=== PATIENT | male | born 1960 | race Caucasian/White ===

== ENCOUNTER 2016-07-25 02:08 | Emergency (ER) | payer SELFPAY ==
--- NOTE | 2016-07-27 07:05 | ER ---
ADMIT: 07/25/2016 RM/LOC: ER [facility] MR#: [id number] [address] [place], [place] [address] [address] [address] [place] [id number] Emergency Room Report SEX: M AGE: 56 : 1960 DATE: 07/25/2016 The patient is a 56-year-old male with no specific past medical history, came here with chief complaint of epigastric abdominal pain, which has started about 2 to 3 hours ago and states that he had on and off same pain for the last year. The pain would mostly be resolved by itself. This time also, the patient has similar pain, which is moderate in quality and his pain and aching and is crampy in the epigastric area. Nothing makes it better or worse. The patient states last bowel movement was a few days back and states that he is suffering chronically from constipation. The patient passed gas yesterday. The patient denied any vomiting. The patient was afebrile in the ER, in rrie-ta-frvokleg distress. The pain was controlled, head and neck exam was noncontributory. Chest was clear bilaterally, normal S1, S2 without any murmurs, abdomen is soft without any tenderness or rebound, the patient received GI cocktail, EKG did not show any ST or T changes or arrhythmia, lab work was done and were negative, CT scan of the abdomen and pelvis was negative for any acute changes. The patient was observed. Pain was controlled, the patient was in no distress or pain, the patient was discharged to home. The patient was advised to drink more fluids, use more fiber in the diet, advised on physical activity and using MiraLax or solution or Metamucil just for resolving the constipation. The patient was advised to follow up with the primary doctor and was given the written precautions. The patient agreed with the plan and acknowledged he understood it. Nick Lizarraga MD/ essence JOB #: [id number] CC: Nick Lizarraga MD, Attending Physician
== END 2016-07-25 06:25 | disposition home or self-care (01) ==
LOC: ER 02:08
DX: K59.00 Constipation, unspecified (principal); F17.210 Nicotine dependence, cigarettes, uncomplicated

== ENCOUNTER 2017-02-22 01:20 | Emergency (ER) | payer SELFPAY ==
--- NOTE | 2017-02-22 07:07 | ER ---
ADMIT: 02/22/2017 RM/LOC: ER [facility] MR#: [id number] [address] [address] [address] [address] [place] [phone] Emergency Room Report SEX: M AGE: 56 : 1960 DATE: 02/22/2017 The patient is a 56-year-old male, complaining of right upper quadrant pain tonight after having high-fat, high-protein meal, associated with nausea and vomiting. Denies any fevers, chills, or prior history of biliary colic. Exam remarkable for nontoxic, afebrile, acutely uncomfortable male, tender right upper quadrant. Normal CBC, CMP, CRP, lactic acid, lipase, troponin, and UA except for 1+ blood, 7 rbc's. The patient received IV fluids, Zofran, Toradol, Dilaudid, Protonix with relief of pain. Home with hydrocodone 5/325 #20 plus 6. Outpatient ultrasound. Follow up Dr. Seals for results and possible HIDA scan. Jez Ford MD/ essence JOB #: [id number] CC: Jez Ford MD, Attending Physician Preston Seals MD, Family Physician Preston Seals MD
== END 2017-02-22 03:30 | disposition home or self-care (01) ==
LOC: ER 01:20
DX: K80.50 Calculus of bile duct without cholangitis or cholecystitis without obstruction (principal); F17.210 Nicotine dependence, cigarettes, uncomplicated; Z90.49 Acquired absence of other specified parts of digestive tract

== ENCOUNTER 2017-02-22 22:45 | Emergency (ER) | payer SELFPAY ==
--- NOTE | 2017-02-23 06:17 | ER ---
ADMIT: 02/22/2017 RM/LOC: ER [facility] MR#: [id number] [address] [facility] [address] [place], [place] [address] [address] [place] [address] Emergency Room Report SEX: M AGE: 56 : 1960 DATE: 02/22/2017 The patient is a 56-year-old male, poor historian, who after review of records has had cholecystectomy and appendectomy. Admits to chronic right upper quadrant abdominal pain for the past 6 to 7 years. Also, significant anorexia and weight loss over the past year. Denies any melanotic stools or hematemesis. Continues to smoke. Uses ibuprofen and drinks copious amounts of milk to alleviate his abdominal pain. Exam remarkable for nontoxic, chronically ill-appearing male, tender right upper quadrant. Normal CBC, CMP, CRP, lipase, tox screen positive for amphetamine, and opiates. INR 1.04. Urinalysis; 2 wbc's, 6 rbc's, 2+ blood, and 3+ ketone. Reviewed CT from July 25. No acute findings. Recommend following up with Dr. Lucas for EGD for suspected peptic ulcer disease. The patient was given a liter of fluid, Zofran, Dilaudid, and Protonix with relief of pain. Home with Protonix 40 mg daily #30, hydrocodone 5/325 #15 plus 6 from Pyxis. Discontinue smoking and ibuprofen. Jez Ford MD/ essence JOB #: [id number] CC: Jez Ford MD, Attending Physician Antonio Lucas MD, Family Physician
== END 2017-02-23 00:20 | disposition home or self-care (01) ==
LOC: ER 22:45
DX: R10.11 Right upper quadrant pain (principal); F17.210 Nicotine dependence, cigarettes, uncomplicated; Z90.49 Acquired absence of other specified parts of digestive tract; Z79.899 Other long term (current) drug therapy